=== PATIENT | female | born 1960 | race Caucasian/White ===

== ENCOUNTER → 2017-01-20 | Outpatient (CLI) | payer MEDICARE ==
[~2017-01-20] MED LIST: ABILIFY PO; ALPRAZOLAM PO; ATARAX PO; BACTRIM DS TABL1 TAB PO; BUSPAR; CELEXA PO; CERTAGEN PO; CIPRO PO; DIAZEPAM PO; DICLOFENAC PO; GOLYTELY4000 ML PO; HYDROXYPAM; HYDROXYZINE PAM25 MG PO; IBUPROFEN PO; IBUPROFEN200 M1 PO; KLONOPIN PO; NEURONTIN PO; NO MEDICATIONS; PREVACID PO; PROZAC; PROZAC PO; PYRIDIUM PO; RITE-AID PHARMACY; SEROQUEL PO; VICODIN 5/500 T1 TAB PO; VOLTAREN75 MG; VOLTAREN75 MG PO; ZOCOR PO; ZYPREXA
--- NOTE | ~2017-01-20 | CR267 ---
[facility] A Service of [facility] RADIOLOGY TEXT RESULTS PATIENT: LUCAS CARRION LOCATION: [facility] : 64 UNIT #: [id number] AGE: [address]: IRVING GASTELUM MD SEX: F ORDER DR: [id number] [facility] [address]. [place], [place] [address] [id number] O MR#: [id number] [facility] #: [id number] NAME: LUCAS CARRION : 1960 SEX: F STUDY DATE/TIME: 01/20/2017 8:47 UNIT: [facility] ROOM: STUDY DESCRIPTION: CR Upper GI W Air W SBFT Attending Physician: Irving Gastelum M.D. Referring Physician: Irving Gastelum M.D. Ordering Physician: Irving Gastelum M.D. Primary Care Physician: Irving Gastelum M.D. MEDICAL IMAGING REPORT This report is preliminary unless electronic signature is present EXAM Upper GI with small bowel follow through, 01/20/2017 Study performed with 0.8 minutes of fluoroscopy and 26 spot views and 5 overhead views HISTORY Upper abdominal bloating and fullness particularly left-sided for several months. FINDINGS Esophagus is normal in course and caliber. There may be a very tiny hiatal hernia. There is no mass or stricture or mucosal fold thickening. The stomach is normal. There is no mass or stricture or ulceration or mucosal fold thickening. Motility is normal. The duodenum is normal without mass or ulceration or stricture. There is normal motility. Small bowel follow-through is normal. The terminal ileum is unremarkable. IMPRESSION Possible very tiny hiatal hernia but otherwise normal double contrast upper GI and small bowel follow-through. Dictated by... Tone Morillo M.D. THIS IS AN ELECTRONICALLY VERIFIED REPORT Tone Morillo M.D. at 01/22/2017 2:08 PM CARRILLO/ina [facility] A Service of [facility] RADIOLOGY TEXT RESULTS PATIENT: LUCAS CARRION LOCATION: [facility] #: [id number] : 64 UNIT #: [id number] AGE: [address]: IRVING GASTELUM MD SEX: F ORDER DR: TD: 01/21/2017 08:18 JOB #: [id number] MEDICAL IMAGING REPORT Page 1 of 1 COPY
== END | disposition home or self-care (01) ==
LOC: CRAD 08:05
DX: R14.0 Abdominal distension (gaseous) (principal); R10.12 Left upper quadrant pain
CPT/HCPCS: 74249

== ENCOUNTER → 2017-01-26 | Outpatient (CLI) | payer MEDICARE ==
--- NOTE | ~2017-01-26 | MY29 ---
[facility] A Service of [facility] RADIOLOGY TEXT RESULTS PATIENT: LUCAS CARRION LOCATION: [facility] : 64 UNIT #: [id number] AGE: [address]: IRVING GASTELUM MD SEX: F ORDER DR: [id number] [facility] [address]. [place], [place] [address] [id number] O MR#: [id number] Acc #: [id number] NAME: LUCAS CARRION : 1960 SEX: F STUDY DATE/TIME: 01/26/2017 10:31 UNIT: [facility] ROOM: STUDY DESCRIPTION: MY BALJINDER SCREENING W/ CAD BILAT Attending Physician: Irving Gastelum M.D. Ordering Physician: Irving Gastelum M.D. Primary Care Physician: Irving Gastelum M.D. MEDICAL IMAGING REPORT This report is preliminary unless electronic signature is present EXAM Screening mammogram, 01/26/2017 INDICATION 56-year-old with no personal but a positive family history of breast in her mother. No current complaints. TECHNIQUE Routine digital screening views of both breasts were obtained. Study is reviewed with an FDA-approved CAD device. Comparison is made with 02/09/2004. FINDINGS Breast parenchyma is heterogeneously dense, but overall less dense than on the prior study. No dominant masses or suspicious microcalcifications are seen. IMPRESSION Negative mammogram. Routine screening in 1 year is recommended. Patients over the age of 40 are entered into a reminder system with target due date for the next mammogram. A result letter will also be sent to the patient. BIRADS: 1 Negative Dictated by... Hmoero Chamorro Jr., M.D. THIS IS AN ELECTRONICALLY VERIFIED REPORT Homero Chamorro Jr., M.D. at 01/27/2017 6:37 AM [facility] A Service of [facility] RADIOLOGY TEXT RESULTS PATIENT: LUCAS CARRION LOCATION: [facility] : 64 UNIT #: [id number] AGE: [address]: IRVING GASTELUM MD SEX: F ORDER DR: JEANNA/gregory TD: 01/27/2017 02:09 JOB #: [id number] MEDICAL IMAGING REPORT Page 1 of 1 COPY
== END | disposition home or self-care (01) ==
LOC: CWCC 10:21
DX: Z12.31 Encounter for screening mammogram for malignant neoplasm of breast (principal); Z80.3 Family history of malignant neoplasm of breast
CPT/HCPCS: G0202